=== PATIENT | female | born 1955 | race Caucasian/White ===

== ENCOUNTER 2025-03-25 10:44 | Outpatient (AMB) | payer MEDICARE, OTHER, SELFPAY ==
--- NOTE | 2025-03-25 10:46 | A.OFFVIS_ITS ---
Vital Signs 03/25/25 10:47 Height 5 ft 6 in Weight 136 lb BMI 21.9 BP 100/60 Blood Pressure Location Lt brachial Position Sitting Pulse 69 Pulse Source Pulse Oximeter Pulse Oximetry (%) 99 Oxygen Delivery Method Room Air Intake Visit Reasons: Pulmonary Arteriovenous Malformation Allergies No Known Allergies Allergy (Verified 03/25/25 10:49) HPI Comments Details: The patient is here for pulmonary evaluation. The patient is a 69 year woman with known history of pulmonary arteriovenous malformations status post coiling in [place]. She is here for a follow-up visit. The patient states that she has been doing very well after her colon. She has not had anymore testing for them. The patient did have some AV malformations that would not intervene because of her too small. 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 From a respiratory melo she is does well she denies any significant shortness of breath. We did do a brief walking oximetry in the office and she was able to maintain a pulse ox of 98% with activity. Since we spoke in the past the patient did develop atrial fibrillation. She is following closely with Cardiology. The patient does have underlying daytime drowsiness with an [place] score that is elevated at 10/24. The patient did have a sleep study many years ago demonstrating mild sleep apnea the time. Although at that time she did not have atrial fibrillation. Therefore will request a home sleep study at this time. In addition to that the patient does follow-up with Neurosurgery regarding aneurysms of the brain although they are small she is getting MRAs every couple years. In addition to that she was told about AV malformations in the GI tract. I do not have any details of that. For now will go ahead and request a CT scan of the chest to assess for any pulmonary nodules or AVM in the lungs and will request a home sleep study. The patient will return in 3 4 months to review the results. If she has any issues prior to that she will call for an earlier assessment. [facility] Medical History (Updated 03/25/25 @ 16:01 by Amos Pinon MD) Pulmonary nodules ROCIO (obstructive sleep apnea) Afib Pulmonary arteriovenous malformation Review of Systems Const Reports daytime sleepiness, Denies fever(s), Denies headache(s) and Reports snoring Eyes Reports no additional complaints ENT Denies headache(s) Card Denies chest pain Resp Reports snoring GI Reports no additional complaints Musc Reports no additional complaints Skin/Breast Denies rash Neuro Denies headache(s) Endo Reports no additional complaints Tang/Lymph Reports no additional complaints Physical Exam Vital Signs: Last Vital Signs Pulse 69 03/25/25 10:47 BP 100/60 03/25/25 10:47 Pulse Ox 99 03/25/25 10:47 Oxygen Delivery Method Room Air 03/25/25 10:47 BMI result Body Mass Index 21.9 Const General: comfortable HEENT Head: Yes normocephalic Neck Neck: Yes supple Chest Chest palpation & inspection: normal inspection of the chest Resp Effort & Inspection: normal respiratory effort Auscultation: clear to auscultation bilaterally Cardio Rate: regular rate Heart sounds: S1 normal heart sound present and S2 normal heart sound present GI Palpation (GI): Soft to palpation Skin General skin exam: no rashes or lesions noted Extrem General: Yes no clubbing, cyanosis or edema Assessment & Plan Assessment & Plan (1) ROCIO (obstructive sleep apnea): Code(s): G47.33 - Obstructive sleep apnea (adult) (pediatric) Category: Medical (2) Afib: Code(s): I48.91 - Unspecified atrial fibrillation Category: Medical Qualifiers: Atrial fibrillation type: persistent (not longstanding) Qualified Code(s): I48.19 - Other persistent atrial fibrillation (3) Pulmonary arteriovenous malformation: Code(s): Q25.72 - Congenital pulmonary arteriovenous malformation Category: Medical (4) Pulmonary nodules: Code(s): R91.8 - Other nonspecific abnormal finding of lung field Category: Medical Plan CT chest Home PSG F/U 3 months Orders: Orders CT chest wo IV con Today G47.33 - Obstructive sleep apnea (adult) (pediatric), I48.91 - Unspecified atrial fibrillation, Q25.72 - Congenital pulmonary arteri ovenous malformation RT home sleep study Today G47.33 - Obstructive sleep apnea (adult) (pediatric) Coding Level of Care Code New Pt Level 4 (23743) Diagnoses ROCIO (obstructive sleep apnea) G47.33 Persistent atrial fibrillation I48.19 Atrial fibrillation type: persistent (not longstanding) Pulmonary arteriovenous malformation Q25.72 Pulmonary nodules R91.8 Time Spent (min) 45
[2025-03-25 10:47] VITALS: BP 100/60; PULSE 69; O2SAT 99; BMI 21.9
--- OUTSIDE RECORDS SUMMARY | 2025-03-25 12:11 | XMS_ITS | Data Portability ---
Author Organization [place] [facility] Address [address] [address] Care Team Providers Care Boring Machine Feeder Name Role Phone YASIR HANSON Primary Care Provider Assessment Encounter Date Assessment Date Assessment LastModified by Organization Details LastModified Time 01/14/2025 01/14/2025 69yo female presents for evaluation of hearing loss. Cerumen impactions removed from bilateral external auditory canals. Otologic exam demonstrates TMs are intact with well-aerated middle ear spaces. Audiogram shows high-frequency sensorineural hearing loss, essentially stable compared to testing performed in 2022. Patient is not a candidate for amplification. Recommend follow up in 1-2 years for repeat audiometric testing, or sooner with any concerns. [email or web address] Not available 01/14/2025 12:17:07 Plan of Treatment Reminders Order Date Submit Date Provider Last Modified By Organization Details Last Modified Time Details Appointments None record ed. Lab None record ed. Referral None record ed. Procedures None record ed. Surgeries None record ed. Imaging None record ed. Medication Orders None record ed. Patient TargetsNo targets recorded. Patient InstructionsNo instructions recorded. Reason for Referral None Reported. Results Created Date Observation Date Name Description Value Unit Range Abnormal Flag Note LastModifiedBy Organization Detail LastModifiedTime 01/15/20 25 audio gram No observ ation record ed. BARCODE Not Available 2024 17:50:57 Result Notes None recorded. Problems Name Problem SNOMED Code Status Onset Date Resolution Date Notes Provider Name and Address Organization Details Recorded Time Impacted cerumen in right ear 60502269299 67688 Active 2022 Impacted cerumen, right ear; Note: Date Diagnosed : 01/17/2023 3:33 PM (H61.21) Not Available [facility] 4 02:23:41 Sensorine ural hearing loss of bilateral ears 506789273 Active 2022 Sensorine ural hearing loss, bilateral ; Note: Date Diagnosed : 02/16/2023 1:59 PM (H90.3) Not Available [facility] 4 02:24:07 Impacted cerumen of bilateral ears 96220717813 85053 Active 2021 Impacted cerumen, bilateral ; Note: Date Diagnosed : 05/03/2022 2:35 PM (H61.23) Not Available [facility] 4 02:23:46 Bilateral tinnitus 49686245730 02 Active 2022 Tinnitus, bilateral ; Note: Date Diagnosed : 02/16/2023 2:17 PM (H93.13) Not Available [facility] 4 02:24:04 Dizziness and giddiness 559268730 Active 2022 Dizziness and giddiness ; Note: Date Diagnosed : 02/16/2023 2:17 PM (R42) Not Available [facility] 4 02:23:39 Tinnitus of vascular origin 371620247 Active 2021 Pulsatile tinnitus, left ear; Note: Date Diagnosed : 05/03/2022 2:35 PM (H93.A2) Not Available [facility] 4 02:24:05 Problem Notes None recorded. Procedures Surgical History Date Name Laterality Status Provider Name and Address Organization Details Recorded Time 5 Air & Speech Audio with Tymps - 61446, 01826 & 03482 completed Pam Flores [place] [facility] 01/14/2025 11:45:32 5 Cerumen removal without microscope bilat completed MARGOTH WAY PA-C [address] [place] [address], [phone], [place] [facility] 01/14/2025 11:24:26 Imaging Results None recorded. Procedure Notes None recorded. Medical Equipment None Reported. Allergies No known drug allergies Medications Name Sig Start Date Stop Date Status Note LastModified by Organization Details LastModified Time amoxicill in 500 mg capsule TAKE 4 CAPSULES BY MOUTH 1 HOUR PRIOR TO APPOINT ENT 01/14 completed Not Available Not Available Not Available digoxin 250 mcg (0.25 mg) tablet 01/14 completed Medicati on ID: [id number] B rand Name: digoxin Send Method: E-Prescr ibed Sub s Allowed: subs OK Medic ationGen ericName : digoxin Not Available Not Available Not Available flecainid e 100 mg tablet TAKE 1 TABLET BY MOUTH TWICE A DAY active Not Available Not Available No t Available digoxin 125 mcg (0.125 mg) tablet 01/14 completed Medicati on ID: [id number] B rand Name: digoxin Send Method: E-Prescr ibed Sub s Allowed: subs OK Medic ationGen ericName : digoxin Not Available Not Available Not Available diltiazem 30 mg tablet TAKE 1 TABLET BY MOUTH TWICE DAILY DIRECTED active Not Available Not Available No t Available amoxicill in 875 mg-potass ium clavulana te 125 mg tablet 01/14 completed Medicati on ID: [id number] B rand Name: amoxicil kurtis-pot clavulan ate Send Method: E-Prescr ibed Sub s Allowed: subs OK Medic ationGen ericName : amoxicil kurtis-pot clavulan ate Not Available Not Available Not Available rosuvasta tin 10 mg tablet TAKE 1 TABLET BY MOUTH EVERY DAY FOR 30 DAYS active Not Available Not Available No t Available metoprolo l tartrate 25 mg tablet 01/14 completed Medicati on ID: [id number] B rand Name: metoprol ol tartrate Send Method: E-Prescr ibed Sub s Allowed: subs OK Speci al Instruct ion: TAKE 1/2 TABLET BY MOUTH TWICE A DAY Medi cationGe nericNam e: metoprol ol tartrate Not Available Not Available Not Available DILT-XR 120 mg capsule, extended release TAKE 1 CAPSULE BY MOUTH EVERY DAY 01/14 completed Not Available Not Available Not Available Linzess 145 mcg capsule TAKE 1 CAPSULE (145 MCG TOTAL) BY MOUTH DAILY BEFORE BREAKFAS T active Not Available Not Available No t Available Linzess 72 mcg capsule PLEASE SEE ATTACHED FOR DETAILED DIRECTIO NS 01/14 completed Not Available Not Available Not Available Flowflex COVID-19 Antigen Home Test kit active Medicati on ID: [id number] B rand Name: Flowflex COVID-19 Ag Home Test Sen d Method: E-Prescr ibed Sub s Allowed: subs OK Speci al Instruct ion: TAKE DIRECTED Medicat ionGener icName: Flowflex COVID-19 Ag Home Test Not Available Not Available Not Available Vitals Date Recorded Body height Body mass index (BMI) Body weight Provider Name and Address Organization Details Last Updated DateTime 01/14/2025 167.64 cm 22.1 kg/m2 05471.15 g VINOD ROWAN [place] - [facility] 01/14/2025 11:08:50 Social History None recorded. Functional Status None recorded. Mental Status None recorded. Family History Nothing Reported. Medical History No medical history recorded. Gynecological HistoryNo gynecological history recorded. Obstetrics History GPAL:G 0 P 0 0 0 0 Past Encounters Encounter ID Performer Location Encounter Start Date Encounter Closed Date Diagnosis/Indication Diagnosis SNOMED-CT Code Diagnosis ICD10 Code Diagnosis Note [id number] HUGH CASTELLANOSC [facility] [address] [address] 01/14/2025 10:54:32 01/14/2025 12:08:37 Impacted cerumen of bilateral ears 2280863250 392421 H61.23 Sensorineu ral hearing loss of bilateral ears 419737149 H90.3 Audiologic al evaluation results:Ri ght ear:Normal sloping to a moderate sensorineu ral hearing loss with excellent word recognitio n.Left ear:Normal sloping to a moderate sensorineu ral hearing loss with excellent word recognitio n.Tympanom etry:Right Ear: Type AdLeft Ear: Type Ad Bilateral tinnitus 26397 62605 102 H93.13 [id number] SUZY PARIKH MA, CCC-A [facility] [address] [address] 01/14/2025 11:44:53 01/17/2025 13:13:40 Sensorineural hearing loss of bilateral ears 988577190 H90.3 Audiologic al evaluation results:Ri ght ear:Normal sloping to a moderate sensorineu ral hearing loss with excellent word recognitio n.Left ear:Normal sloping to a moderate sensorineu ral hearing loss with excellent word recognitio n. Tympanomet ry:Right Ear:Type AdLeft Ear:Type Ad Health Concerns Section Related Observation LastModified by Organization Detai ls LastModified Time None Recorded Concern Status LastModified by Organization Details LastModified Time None Recorded Advance Directives Directive None Recorded Payers Insurance Date Sequence Insurance Name Policy Number Policy Lay Covered Member ID Lay Member ID Guarantor Name 01/14/2025 1 MEDICARE B-[place]: [facility] [employer] Suzy Alex [id number] Suzy Pastor Isai 01/14/2025 2 [facility] Suzy Pastor Alex [id number] Suzy A Alex Notes Date Note Type Note Provider Name and Address Organization Details Recorded Time 01/14/2025 text/html 69yo female presents for evaluation of hearing loss and wax removal. She feels hearing loss is stable. She has bilateral constant tinnitus, worse at night. She reports occasional pulsatile sensation in the head during exertion, but cannot isolate to the ears. Denies ear pain, drainage, or dizziness. Denies prior history of ear infections or ear surgeries. PERICO HERNANDEZ MD [address] [place] [address], [phone] 01/14/2025 12:34:06 OBGyn Episode No OBEpisode recorded.
== END 2025-03-25 11:15 | disposition home or self-care (01) ==
LOC: HO.HPS 10:45
PROVIDERS: PCP Internal Medicine; Referring Provider Internal Medicine; Visit Provider Hospitalist
DX: G47.33 Obstructive sleep apnea (adult) (pediatric) (principal); I48.19 Other persistent atrial fibrillation; Q25.72 Congenital pulmonary arteriovenous malformation; R91.8 Other nonspecific abnormal finding of lung field
CPT/HCPCS: 99204

== ENCOUNTER → 2025-03-25 10:44 | Outpatient (BNVA) | payer MEDICARE, OTHER, SELFPAY | PROVIDERS: PCP Internal Medicine; Referring Provider Internal Medicine; Visit Provider Hospitalist | DX: Q25.72 Congenital pulmonary arteriovenous malformation (principal); G47.33 Obstructive sleep apnea (adult) (pediatric); I48.19 Other persistent atrial fibrillation; R91.8 Other nonspecific abnormal finding of lung field | CPT/HCPCS: 99202 ==

== ENCOUNTER → 2025-06-09 09:54 | Outpatient (REF) | payer MEDICARE, OTHER, SELFPAY ==
--- OUTSIDE RECORDS SUMMARY | 2025-06-09 10:40 | XMS_ITS | Continuity of Care Document ---
Author Organization [facility] [address] [facility] [address] [place] [address] Phone [phone] Social History Type Date Description Comments Sex Female Sex Unknown Medical Devices Description No Information Available Encounters Description No Information Available Assessments Description No Information Available Plan of Treatment No Information Available Functional Status Description No Information Available Mental Status Description No Information Available Referrals Description No Information Available
--- OUTSIDE RECORDS SUMMARY | 2025-06-09 10:40 | XMS_ITS | Clinical Summary ---
Author Organization [facility] [address] [facility] Address [address] [place] [address] Phone Care Team Providers Care Furnace Liner Name Role Phone Rogelio Hanson MD Primary Care Provider + [phone] Allergies Active Allergy Reactions Criticality Noted Date Comments Promethazine 01/06/2025 Medications magnesium citrate 125 mg capsule Take 1 capsule by mouth 2 (two) times a day. 08/31/2023 Active pyridoxine (B-6) 100 mg tablet Take 1 tablet (100 mg total) by mouth 1 (one) time each day. Active cyanocobalamin (VITAMIN B-12) 500 mcg tablet Take 1 tablet (500 mcg total) by mouth 1 (one) time each day. Active cholecalciferol (VITAMIN D-3) 25 mcg (1,000 unit) capsule Take 25 mcg by mouth 1 (one) time each day. Active acetaminophen (TYLENOL 8 HOUR ORAL) Take by mouth. Active calcium citrate (CALCITRATE) 950 mg (200 mg elemental calcium) tablet Take 1 tablet (950 mg total) by mouth. Active linaCLOtide (Linzess) 145 mcg capsule Take 1 capsule (145 mcg total) by mouth 1 (one) time each day before breakfast. 90 each 3 10/22/2024 Active dilTIAZem (CARDIZEM) 30 mg immediate release tablet Take 1 tablet (30 mg total) by mouth 2 (two) times a day. Active rosuvastatin (CRESTOR) 10 mg tablet Take 0.5 tablets (5 mg total) by mouth 1 (one) time each day. for 30 days 12/24/2024 Active flecainide (TAMBOCOR) 100 mg tablet TAKE 1 TABLET BY MOUTH TWICE A DAY 180 tablet 2 04/24/2025 Active Active Problems Problem Noted Date Diagnosed Date Other constipation 10/14/2024 Assessment & Plan (02/25/2025 8:36 AM EDT): She continues to follow closely with GI. She has had some relief after being started on Linzess. Atrial fibrillation (CMS/HCC V24, CMS/HCC V28) 1 11/28/2020 Overview (08/28/2024): Last Assessment & Plan: Remains in sinus on ECG. Continue rhythm control with flecainide and rate control with diltiazem. Will update BMP. She will call me if she develops any symptoms. She is not anticoagulated given Von Willebrand's disease coupled with low [id number] score. Assessment & Plan (02/25/2025 8:36 AM EDT): Denies perception of recurrence of arrhythmia. She continues on diltiazem and flecainide. She is not anticoagulated in light of her von Willebrand's and her HHT. We will update surveillance stress testing in light of ongoing flecainide therapy. Orders: ECG 12 lead Nuclear stress test with myocardial perfusion; Future Other chest pain 09/27/2021 Overview (08/28/2024): Last Assessment & Plan: She does get a heaviness in her chest at times. Not clear if this is due to coronary disease or not but we will be scheduled for nuclear stress test. Shortness of breath on exertion 09/27/2021 Overview (08/28/2024): Last Assessment & Plan: She does have shortness of breath on exertion this could be related to the AVMs. She will need a echocardiogram and she will also need a nuclear stress test.. 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 Alex and compared to the previous one. I noted that the current study describes 3 tiny aneurysms but states it is stable from the previous study which only lists 2. I compared these [id number] and I can see the same outpouching on the 2022 study that was not mentioned in the report. I agree that the third tiny aneurysm in the left supraclinoid space was present and is stable. Ms. Alex feels well and the small aneurysms are asymptomatic. She occasionally gets a headache but I reassured her that these would not be the cause. We also discussed her history of von Willebrand's and the need for DDAVP in conjunction with any procedure. So far, these have not affected the aneurysms. She was diagnosed with A-fib 2 to 3 years ago and is being managed with medication only, she was told she is not eligible for any procedure due to her history. We also discussed that a maternal cousin was treated for a ruptured cerebral aneurysm and the patient herself tested positive for HHT. Her daughter has tested negative but I agree that her remaining children should be screened. We will plan on continuing with her surveillance imaging with a new MRA in 2 years. Cholelithiasis 02/08/2018 Overview (08/28/2024): And trace pericholecystic fluid. Gallbladder US 01/18/2018 Von Willebrand disease (CMS/HCC V24, CMS/HCC V28 ) 02/08/2018 Encounters Date Type Department Care Team Description 03/24/2025 Telephone [facility] - [address] [place] [address] Kali Quiroz MD 03/23/2025 Telephone [facility] - [address] [place] [phone] Kali Quiroz MD 03/17/2025 8:00 AM EDT Ancillary Procedure [facility] - [address] [place] [address] Paroxysmal atrial fibrillation ([facility] V24, [facility] V28) 03/17/2025 Telephone [facility] - [address] [place] [address] Kali Quiroz MD from Last 3 Months Surgical History Surgery Date Site/Laterality Comments COLONOSCOPY 10/2017 PROCEDURE: HISTORICAL COLONOSCOPY; COMMENT: endoscopy as well. No report or exact date-not in Medical History Medical History Date Comments Cholelithiasis 02/08/2018 DX:Cholelithiasi s; COMMENT: And trace pericholecystic fluid. 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 DX:A neurysm, ophthalmic artery AVM (arteriovenous malformation) 06/10/2018 DX:AVM (arteriovenous malformation); COMMENT: Lungs (RUL, RML and lingula); stable per CT chest 05/2016 GERD (gastroesophageal reflu x disease) Family History Medical History Relation Name Comments Hypertension Mother Other: AFIB Mother Other: PACEMAKER Mother Other: VALVE REPLACEMENT Mother Relation Name Status Comments Mother Social History Tobacco Use Types Packs/Day Years Used Date Smoking Tobacco: Never Smokeless Tobacco: Never Alcohol Use Standard Drinks/Week Comments Not Currently 0 (1 standard drink = 0.6 oz pur e alcohol) Comments Unknown Sex and Gender Information Value Date Recorded Sex Assigned at Not on file Legal Sex Female 7:21 PM EST Gender Identity Not on file Sexual Orientation Not on file Obstetrics History Last Filed Vital Signs Vital Sign Reading Time Taken Comments Blood Pressure 95/58 03/17/2025 8:18 AM EDT Pulse 71 02/24/2025 8:36 AM EDT Temperature - - Respiratory Rate - - Oxygen Saturation 98% 02/24/2025 8:36 AM EDT Inhaled Oxygen Concentration - - Weight 61.7 kg (136 lb) 03/17/2025 9:21 AM EDT Height 167.6 cm (5' 6 ) 03/17/2025 9:21 AM EDT Body Mass Index 21.95 03/17/2025 9:21 AM EDT Plan of Treatment Upcoming Encounters Date Type Department Care Team (Late st Contact Info) Description 09/21/2025 9:10 AM EST Office Visit [facility] [address] [place] [address] Haydee Barrios, SANDRA [address] [place] [address] Health Maintenance Due Date Last Done Comments Breast Cancer Screening 1955 DTaP,Tdap,and Td Vaccines (1 - Tdap) 1975 Pneumococcal Vaccine: 50+ Years (1 of 1 - PCV) 2006 Zoster Vaccines (1 of 2) 2006 Cholesterol Screening (Lipid Panel) 09/23/2022 Colorectal Cancer Screening: Colonoscopy 09/23/2022 Falls Risk Assessment 09/23/2022 Hepatitis C Screening 09/23/2022 Social Influencers of Health Screening 09/23/2022 Medicare Annual Wellness Visit 11/09/2023 11/09/2022 Depression Screening 10/15/2024 COVID-19 Vaccine ( season) 2025 07/26/2024, 03/04/2023, 01/17/2022, Additional history exists Influenza Vaccine (#1) 2025 , 08/06/2023, 08/04/2022, Additional history exists RSV Immunization Adult Patients (1 - 1-dose 75+ series) 2031 Osteoporosis Screening (Bone Density Screening) 12/20/2033 12/21/2023, 09/27/2021, 08/06/2018 HIB Vaccines Aged Out No longer eligi ble based on patient's age to complete this topic HPV Vaccines Aged Out No longer eligi ble based on patient's age to complete this topic Hepatitis A Vaccines Aged Out No long er eligible based on patient's age to complete this topic Hepatitis B Vaccines Aged Out No long er eligible based on patient's age to complete this topic IPV Vaccines Aged Out No longer eligi ble based on patient's age to complete this topic MMR Vaccines Aged Out No longer eligi ble based on patient's age to complete this topic Meningococcal ACWY Vaccine Aged Out N o longer eligible based on patient's age to complete this topic Meningococcal B Vaccine Aged Out No l onger eligible based on patient's age to complete this topic RSV Immunization Patients Under 20 months Aged Out No longer eligible based on patient's age to complete this topic Varicella Vaccines Aged Out No longer eligible based on patient's age to complete this topic Procedures Procedure Name Priority Date/Time Associated Diagnosis Comments NM EXERCISE STRESS TEST W/ MYOCARDIAL PERFUSION Routine 03/17/2025 10:30 AM EDT Paroxysmal atrial fibrillation (CMS/HCC V24, CMS/HCC V28) [facility] DEXA AXIAL SKELETON Routine 12/21/2023 10:56 AM EST Encounter for screening for osteoporosis from Last 3 Months or Most Recently Relevant to Health Maintenance Results * NM EXERCISE STRESS TEST W/ MYOCARDIAL PERFUSION (03/17/2025 10:30 AM EDT) Exercise/injec tion duration (min) 4 CV PACS STRESS Exercise/injec tion duration (sec) 54 CV PACS STRESS Peak SBP 122 mmHg CV PACS STRESS Peak DBP 74 mmHg CV PACS STRESS Peak HR 134 bpm CV PACS STRESS Baseline HR 115 bpm CV PACS STRESS Baseline SBP 95 mmHg CV PACS STRESS Baseline DBP 58 mmHg CV PACS STRESS Estimated workload 7.0 METS CV PACS STRESS Percent HR 88 % CV PACS STRESS Rate Pressure Product 16,348.0 mmHg*bpm CV PACS STRESS Target HR 129 bpm CV PACS STRESS Max HR Percent 88 % CV PA CS STRESS O2 sat rest 99 % CV PACS STRESS TID 0.81 CV PACS STRESS Nuc Stress EF 72 % CV PAC S STRESS Nuc Rest EF 63 % CV PACS STRESS BSA 1.69 m2 CV PACS STRESS Anatomical Region Laterality Modality Nuclear Medicine 03/17/2025 8:46 AM EDT 03/17/2025 9:15 AM EDT Impressions 03/19/2025 10:18 AM EDT Normal Exercise stress test with nuclear imaging. No chest pain or EKG changes consistent with ischemia. Nuclear imaging revealed no significant perfusion defects. There is a normal TID ratio. Gated SPECT imaging was performed and revealed an LVEF of 63 %. Narrative 03/19/2025 10:18 AM EDT Nuclear imaging of the left ventricle shows a normal cavity size. Myocardial perfusion imaging of the left ventricle reveals no significant perfusion defects Gated SPECT imaging was performed which demonstrated normal left ventricular systolic function. The calculated LVEF is 63 %. TID ratio is normal. There was no significant coronary artery calcification noted on CT scan. Stress Findings A Bryan protocol stress test was performed. Overall, the patient's exercise capacity was average. The patient reached stage 2. Total stress time was 4 min and 54 sec. The patient's hemodynamic response was adequate for diagnosis. Blood pressure demonstrated a normal response. Heart rate demonstrated a normal response. Leg heaviness and fatigue ECG 69-year-old female with past medical history of atrial fibrillation, hereditary hemorrhagic telangiectasia von Willebrand's disease obstructive sleep apnea AVM and shortness of breath who presents today for a exercise stress test to rule out ischemia in the setting of increased fatigue and breathlessness. Patient takes flecainide 100 mg and diltiazem 30 mg. The ECG shows sinus rhythm. There were no arrhythmias during stress. There is no significant ST abnormalities during stress. There were no arrhythmias during recovery. The result of the stress ECG was negative for ischemia. Nuclear Study Quality Study technique: MPI, SPECT, multi, rest and stress, 1 day and gated. Overall image quality is good. CT attenuation correction was utilized. No radiopharmaceutical dose was extravasated. Stress Function Comments Stress ejection fraction is 72%. Rest Function Comments Resting ejection fraction was 63%. Haydee Barrios NP CV STRESS PROCEDURES F inal Result * ADAN DEXA AXIAL SKELETON (12/21/2023 10:56 AM EST) Anatomical Region Laterality Modality Mammography 12/21/2023 9:32 AM EST Narrative 12/21/2023 10:56 AM EST [facility] Diagnostic Imaging Department [address] [place] [address] Patient: ALEXSUZY./Age/Sex: 1955 - 68 - F Unit#: [id number] Location/Status: SPDIMAM/REG CLI Mnemonic/Ordering Site: MAMDEXAAX/SPMAM Ordering Physician: ROGELIO HANSON MD Adan Dexa Axial Skeleton - 12/21/23954 Report Status:Signed History: Low estrogen state due to menopause. Parent hip fracture. Comparison: 09/27/21 Findings: Bone densitometry is performed utilizing dual energy x-ray absorptiometry (DXA) in the TeladocigStartupeando unit. The lumbar spine and proximal femora are evaluated in the AP projection. The FRAX questionaire was completed. The results indicate osteoporosis, with a lumbar spine T-score of -2.9. The Z score is -1.1, indicating low bone mineral density for age. There has been a small, statistically significant increase in bone mineral density in the spine since the previous study. The detailed DEXA report will be mailed to the referring physician's office. DualFemur FRAX: 10-year Probability of Fracture: Major Osteoporotic 15.2 percent Hip 1.6 percent. IMPRESSION: Osteoporosis. [id number] Dictating Physician: CAROL QUINTANA MD Electronically Signed by: CAROL QUINTANA MD Dic Date/Time: 12/21/23 1055 Sign date/Time: 12/21/23 1056 Procedure Note Carol Quintana MD - 06/02/2024 [facility] Diagnostic Imaging Department [address] [place] [address] Patient: SUZY ALEX /Age/Sex: 1955 - 68 - F Unit#: [id number] Location/Status: [facility] CLI Mnemonic[facility] Ordering Physician: ROGELIO HANSON MD Adan Dexa Axial Skeleton - 12/21/23954 Report Status:Signed History: Low estrogen state due to menopause. Parent hip fracture. Comparison: 09/27/21 Findings: Bone densitometry is performed utilizing dual energy x-ray absorptiometry(DXA) in the Teladocigy unit. The lumbar spine and proximal femora areevaluated in the AP projection. The FRAX questionaire was completed. The results indicate osteoporosis, with a lumbar spine T-score of -2.9.The Z score is -1.1, indicating low bone mineral density for age. There has been a small, statistically significant increase in bonemineral density in the spine since the previous study. The detailed DEXA reportwill be mailed to the referring physician's office. DualFemur FRAX: 10-year Probability of Fracture: Major Osteoporotic 15.2 percent Hip 1.6 percent. IMPRESSION: Osteoporosis. [id number] Dictating Physician: CAROL QUINTANA MD Electronically Signed by: CAROL QUINTANA MD Dic Date/Time: 12/21/23 1055 Sign date/Time: 12/21/23 1056 Rogelio Hanson MD IMG BI PROCEDURES Final Resu lt from Last 3 Months or Most Recently Relevant to Health Maintenance Insurance MEDICARE [facility] Care Teams Furnace Liner Relationship Specialty Start Date End Date Rogelio Hanson MD [address] [place] [address] PCP - General Internal Medicine 01/05/25
--- OUTSIDE RECORDS SUMMARY | 2025-06-09 10:40 | XMS_ITS | Clinical Summary ---
Author Organization [facility] Address [address] [place] [address] Care Team Providers Care Repairer Helper Name Role Phone Rogelio Barrientos MD Primary Care Provider [phone] Social History Tobacco Use Types Packs/Day Years Used Date Smoking Tobacco: Never Assessed Sex and Gender Information Value Date Recorded Sex Assigned at Not on file Gender Identity Not on file Sexual Orientation Not on file Job Start Date Occupation Industry Not on file Not on file Not on file Plan of Treatment Health Maintenance Due Date Last Done Comments Hepatitis C Screening 1955 COVID-19 Vaccine (#1) 1955 Depression Screening 1968 Preventative Health Evaluation 1974 DTap / Tdap / Td (1 - Tdap) 1975 Colon Cancer Screening (Colonoscopy) 2001 Breast Cancer Screening (Mammogram) 2006 Shingrix-Zoster Vaccine (1 of 2) 2006 Fall Risk Assessment 2021 Osteoporosis Screening (DEXA Scan) 2021 Pneumococcal Vaccine (1 of 1 - PCV) 2021 Influenza Vaccine (#1) 2025 RSV Adult > 60+ Yrs or Pregn ant (1 - 1-dose 75+ series) 2031 Hepatitis B Vaccines Aged Out No long er eligible based on patient's age to complete this topic RSV Ped < 20 months Aged Out No longe r eligible based on patient's age to complete this topic Care Teams Repairer Helper Relationship Specialty Start Date End Date Rogelio Barrientos MD [address] [place] [address] PCP - General Internal Medicine 11/11/20
== END ==
LOC: HO.SL 09:54
PROVIDERS: PCP Internal Medicine; Visit Provider Hospitalist
DX: G47.33 Obstructive sleep apnea (adult) (pediatric) (principal); R06.83 Snoring
CPT/HCPCS: 95806

== ENCOUNTER → 2025-06-09 10:03 | Outpatient (BNV) | payer MEDICARE, OTHER, SELFPAY | PROVIDERS: PCP Internal Medicine; Visit Provider Internal Medicine | DX: R06.83 Snoring (principal) | CPT/HCPCS: 95806 ==

== ENCOUNTER 2025-09-14 12:55 | Outpatient (REF) | payer MEDICARE, OTHER, SELFPAY ==
--- OUTSIDE RECORDS SUMMARY | 2008-12-27 23:00 | XMS_ITS | Encounter Summary ---
Author Organization [facility] Address [address] [place] [address] Phone Care Team Providers Care Receptionist Airline Lounge Name Role Phone Unavailable Primary Care Provider Unavailabl e Reason for Visit * MRI/CAT Scan - Closed Specialty Diagnoses / Procedures Referred By Contac t Referred To Contact Procedures MRI Brain Outside (No Interpretation) Tom Archibald MD [address] [place] [address] Phone: tel: fax: mailto:[email or web address] Referral ID Status Reason Start Date Expiration Date Visits Re quested Visits Authorized [id number] Closed 08/20/2018 08/20/2019 1 1 Encounter Details Date Type Department Care Team (Late st Contact Info) Description 12/28/2008 Hospital Encounter [facility] General Imaging [address] [place] [address] Tom Archibald MD [address] [place] [address] [email or web address] Social History Tobacco Use Types Packs/Day Years Used Date Smoking Tobacco: Never Education Answer Date Recorded Are you interested in more education? Not on eugenio e 02/09/2023 Are you concerned about learning? Not on file 02/09/2023 No 02/09/2023 No 02/09/2023 Digital Access Answer Date Recorded No 03/10/2023 No 03/10/2023 No 03/10/2023 Reliable internet access at home? Not on file 03/10/2023 Device with a working camera? Not on file Comments Unknown Sex and Gender Information Value Date Recorded Sex Assigned at Not on file Legal Sex Female 11:22 AM EDT Gender Identity Not on file Sexual Orientation Not on file documented as of this encounter Plan of Treatment Not on file documented as of this encounter Procedures Procedure Name Priority Date/Time Associated Diagnosis Comments MRI BRAIN OUTSIDE (NO INTERPRETATION) Routine 12/28/2008 12:00 AM EDT documented in this encounter Results * MRI Brain Outside (No Interpretation) (12/28/2008 12:00 AM EDT) Narrative [facility] - 08/20/2018 1:09 PM EST This study is for PACS storage only and not for interpretation. us Tom Archibald MD IMG OUTSIDE IMAGING W/OUT INTERPRETATION Final Result [facility] documented in this encounter Visit Diagnoses Not on filedocumented in this encounter Additional Source Comments The information contained in this document represents components of the legal health record. It is not the complete legal health record.[facility]
--- OUTSIDE RECORDS SUMMARY | 2008-12-27 23:15 | XMS_ITS | Encounter Summary ---
Author Organization [facility] Address [address] [place] [address] Phone Care Team Providers Care Gambreler Name Role Phone Unavailable Primary Care Provider Unavailabl e Reason for Visit * MRI/CAT Scan - Closed Specialty Diagnoses / Procedures Referred By Contac t Referred To Contact Procedures MRI Brain Outside (No Interpretation) Tom Archibald MD [address] [place] [address] Phone: tel: fax: mailto:[email or web address] Referral ID Status Reason Start Date Expiration Date Visits Re quested Visits Authorized [id number] Closed 08/20/2018 08/20/2019 1 1 Encounter Details Date Type Department Care Team (Late st Contact Info) Description 12/28/2008 12:15 AM EDT Hospital Encounter [facility] [address] [place] [address] Tom Archibald MD [address] [place] [phone] [email or web address] Social History Tobacco Use Types Packs/Day Years [...] MRI BRAIN OUTSIDE (NO INTERPRETATION) Routine 12/28/2008 12:15 AM EDT documented in this encounter Results * MRI Brain Outside (No Interpretation) (12/28/2008 12:15 AM EDT) Narrative [facility] - 08/20/2018 1:10 PM EST This study is for PACS storage only and not for interpretation. us Tom Archibald MD IMG OUTSIDE IMAGING W/OUT INTERPRETATION Final Result [facility] documented in this encounter Visit Diagnoses Not on filedocumented in this encounter Additional Source Comments The information contained in this document represents components of the legal health record. It is not the complete legal health record.[facility]
--- OUTSIDE RECORDS SUMMARY | 2013-04-11 23:00 | XMS_ITS | Encounter Summary ---
Author Organization [facility] Address [address] [place] [phone] Phone Care Team Providers Care Senior Telecommunications Consultant Name Role Phone Unavailable Primary Care Provider Unavailabl e Reason for Visit * MRI/CAT Scan - Closed Specialty Diagnoses / Procedures Referred By Contac t Referred To Contact Procedures MRI Brain Outside (No Interpretation) Tom Archibald MD [address] [place] [address] Phone: tel: fax: mailto:[email or web address] Referral ID Status Reason Start Date Expiration Date Visits Re quested Visits Authorized [id number] Closed 08/20/2018 08/20/2019 1 1 Encounter Details Date Type Department Care Team (Late st Contact Info) Description 04/12/2013 Hospital Encounter [facility] General Imaging [address] [place] [address] Tom Archibald MD [address] [place] [phone] [email or web address] Social History Tobacco Use Types Packs/Day Years [...] Comments MRI BRAIN OUTSIDE (NO INTERPRETATION) Routine 04/12/2013 12:00 AM EDT documented in this encounter Results * MRI Brain Outside (No Interpretation) (04/12/2013 12:00 AM EDT) Narrative [facility] [place] [facility] - 08/20/2018 1:24 PM EST This study is for PACS storage only and not for interpretation. us Tom Archibald MD IMG OUTSIDE IMAGING W/OUT INTERPRETATION Final Result [facility] [place] [facility] documented in this encounter Visit Diagnoses Not on filedocumented in this encounter Additional Source Comments The information contained in this document represents components of the legal health record. It is not the complete legal health record.[facility]
--- NOTE | ~2025-09-14 | CT_ITS ---
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 TECHNIQUE: Helical CT scan of the chest was performed without intravenous contrast. Coronal and sagittal reformatted images were generated and reviewed. This CT exam was performed with one or more of the following dose reduction techniques: automated exposure control, adjustment of the mA and/or kV according to patient size, use of iterative reconstruction technique. DLP: 83 mGy-cm CHEST: THYROID: The thyroid is unremarkable. LUNGS: There is a heterogeneous 4 x 11 mm right upper lobe nodule axial image 150 series 6. This has a prominent feeding pulmonary artery and draining vein and is suspicious for AVM. There is embolization material seen in the right middle lobe example axial image 246 series 6 measuring up to 3 cm.. There is a 5 mm right middle lobe nodule near the major fissure axial image 294 series 6 with prominent artery and vein also questionable for AVM. There is embolization material seen in the lingula measuring up to 1 cm. Small 3 mm calcified right lower lobe nodules axial image 263 and 373 and left lower lobe axial image 170 series 6 probably representing calcified granulomas. Differential would include embolization material. There is mild mucous plugging seen in the right middle lobe for example axial image 290 series 6. Air scattered small groundglass attenuation nodules for example left lung apex axial image 59 series 6, left upper lobe axial image 175 series 6 and left lower lobe axial image 217 series 6. This may be related to airways disease. Central airways are clear. There is mild biapical pleural and parenchymal scarring. MEDIASTINUM: There is no mediastinal lymphadenopathy. MARGI: Evaluation of the hilar regions is limited by lack of intravenous contrast material. CARDIOVASCULATURE: The heart is normal in size. There is no pericardial effusion. The thoracic aorta is normal in caliber. DEGREE OF CORONARY CALCIFICATION: none PLEURA: There is no pleural effusion. No pneumothorax. MAIN AIRWAYS: The mainstem bronchi and proximal branches are patent. AXILLA: There is no axillary lymphadenopathy. BONES AND SOFT TISSUES: Unremarkable UPPER ABDOMEN: Small calcification in the spleen. 6 mm lucent centered calcification in the splenic hilum questionable splenic artery aneurysm. CT/CT chest wo IV con IMPRESSION: Embolization material seen in the right middle lobe and lingula. 4 x 11 mm right upper lobe nodule and 5 mm right middle lobe nodule questionable for AVMs. Comparison with old outside exams recommended. Contrast-enhanced CT would be beneficial. Electronically signed by: Candace Galan MD 09/14/2025 02:28 PM EST
--- OUTSIDE RECORDS SUMMARY | 2025-09-14 16:32 | XMS_ITS | Data Portability ---
Author Organization [place] - [facility], Allergy Address [address] [address] Care Team Providers Care Gas Plant Worker Name Role Phone YASIR HANSON Primary Care [...] any concerns. [email or web address] Not available 01/14/2025 12:17:07 08/26/2025 08/26/2025 70-year-old female presents for wax removal. Cerumen impaction was partially obstructing the bilateral external auditory canals and removed using suction. Patient tolerated the procedure well. Tympanic membranes are otherwise intact with well aerated middle ear spaces. Offered to obtain an MRI/MRA of the head and neck to assess for any vascular abnormalities, especially given her history of AVM and HHT, however she declined for now. No carotid or otic bruits were appreciated previously. Follow up in 3 months for repeat debridement, sooner with any new or worsening concerns. All questions were answered. [email or web address] Not available 08/26/2025 13:12:38 Plan of Treatment Reminders Order Date Submit Date Provider Last Modified By Organization Details Last Modified Time Details Appointments Establish ed 15 2025 10:45A KIMMY MARTINEZ Not available Not available Not available Lab None recorded. Referral None recorded. Procedures None recorded. Surgeries None recorded. Imaging None recorded. Medication Orders None recorded. Patient TargetsNo targets recorded. Patient InstructionsNo instructions [...] Address Organization Details Recorded Time Impacted cerumen of bilateral ears 35454658703 16644 Active 2021 Impacted cerumen, bilateral ; Note: Date Diagnosed : 05/03/2022 2:35 PM (H61.23) Not Available [facility] 4 02:23:46 Tinnitus of vascular origin 348165160 Active 2021 Pulsatile tinnitus, left ear; Note: Date Diagnosed : 05/03/2022 2:35 PM (H93.A2) Not Available [facility] 4 02:24:05 Impacted cerumen in right ear 44731142852 68922 Active 2022 Impacted cerumen, right ear; Note: Date Diagnosed : 01/17/2023 3:33 PM (H61.21) Not Available [facility] 4 02:23:41 Sensorine ural hearing loss of bilateral ears 284883649 Active 2022 Sensorine ural hearing loss, bilateral ; Note: Date Diagnosed : 02/16/2023 1:59 PM (H90.3) Not Available [facility] 4 02:24:07 Bilateral tinnitus 80222623592 02 Active 2022 Tinnitus, bilateral ; Note: Date Diagnosed : 02/16/2023 2:17 PM (H93.13) Not Available [facility] 4 02:24:04 Dizziness and giddiness 844921361 Active 2022 Dizziness and giddiness ; Note: Date Diagnosed : 02/16/2023 2:17 PM (R42) Not Available [facility] 4 02:23:39 Problem Notes None recorded. Procedures Surgical History Date Name Laterality Status Provider Name and Address Organization Details Recorded Time 5 Cerumen removal without microscope bilat completed KIMMY SCHREIBER [address], [place], [address], [facility] - [facility] 08/26/2025 13:03:43 5 Air & Speech Audio with Tymps - 95974, 23779 & 01014 completed Pam Flores [place] - [facility] 01/14/2025 11:45:32 5 Cerumen removal without microscope bilat completed MARGOTH WAY PA-C [address], [place], [address], [facility] - [facility] 01/14/2025 11:24:26 Imaging Results None recorded. Procedure Notes None recorded. Medical Equipment None Reported. Allergies No known drug allergies Medications Name Sig Start Date Stop Date Status Note LastModified by Organization Details LastModified Time amoxicill in 500 mg capsule TAKE 4 CAPSULES BY MOUTH 1 HOUR PRIOR TO APPOINTM ENT 08/23 completed Not Available Not Available Not Available digoxin 250 mcg (0.25 mg) tablet 01/14 completed Medicati on ID: [id number] B rand Name: digoxin Send Method: E-Prescr ibed Sub s Allowed: subs OK Medic ationGen ericName : digoxin Not Available Not Available Not Available flecainid e 100 mg tablet TAKE 1 TABLET BY MOUTH TWICE A DAY active Not Available Not Available No t Available digoxin 125 mcg (0.125 mg) tablet 01/14 completed Medicati on ID: [id number] B rand Name: digoxin Send Method: E-Prescr ibed Sub s Allowed: subs OK Medic ationGen ericName : digoxin Not Available Not Available Not Available diltiazem 30 mg tablet TAKE 1 TABLET BY MOUTH TWICE DAILY DIRECTED active Not Available Not Available No t Available amoxicill in 875 mg-potass ium clavulana te 125 mg tablet 01/14 completed Medicati on ID: [id number] B rand Name: amoxicil kurtis-pot clavulan ate Send Method: E-Prescr ibed Sub s Allowed: subs OK Medic ationGen ericName : amoxicil kurtis-pot clavulan ate Not Available Not Available Not Available rosuvasta tin 5 mg tablet TAKE 1 TABLET BY MOUTH EVERY DAY FOR 90 DAYS active Not Available Not Available No t Available rosuvasta tin 10 mg tablet TAKE 1 TABLET BY MOUTH EVERY DAY FOR 30 DAYS active Not Available Not Available No t Available metoprolo l tartrate 25 mg tablet 01/14 completed Medicati on ID: [id number] B rand Name: metoprol ol tartrate Send [...] Home Test kit active Medicati on ID: [id number] B rand Name: Flowflex COVID-19 Ag Home Test Sen d Method: E-Prescr ibed Sub s Allowed: subs OK Speci al Instruct ion: TAKE DIRECTED Medicat ionGener icName: Flowflex COVID-19 Ag Home Test Not Available Not Available Not Available Vitals Date Recorded Body height Body mass index (BMI) Body weight Provider Name and Address Organization Details Last Updated DateTime 01/14/2025 167.64 cm 22.1 kg/m2 65259.15 g VINOD ROWAN [place] - [facility] 01/14/2025 11:08:50 Date Recorded Body height Body mass index (BMI) Body weight Systolic And Diastolic Provider Name and Address Organization Details Last Updated DateTime 08/26/2025 167.64 cm 22.1 kg/m2 84355.15 g 100/68 mm[Hg] Amy Luevano [place] - [facility] 08/26/2025 10:56:19 Social History None recorded. Functional Status None recorded. Mental Status None recorded. Family History Nothing Reported. Medical History No medical history recorded. Gynecological HistoryNo gynecological history recorded. Obstetrics History GPAL:G 0 P 0 0 0 0 Past Encounters Encounter ID Performer Location Encounter Start Date Encounter Closed Date Diagnosis/Indication Diagnosis SNOMED-CT Code Diagnosis ICD10 Code Diagnosis IMO Codes Diagnosis Note [id number] KIMMY CASTELLANOS-C [facility] [address] [address] 01/14/2025 10:54:32 01/14/2025 12:08:37 Impacted cerumen of bilateral ears [id number] 163618 H61.23 Sensorineu ral hearing loss of bilateral ears 221570725 H90.3 Audiologic al evaluation results:Ri ght ear:Normal sloping to a moderate sensorineu ral hearing loss with excellent word recognitio n.Left ear:Normal sloping to a moderate sensorineu ral hearing loss with excellent word recognitio n.Tympanom etry:Right Ear: Type AdLeft Ear: Type Ad Bilateral tinnitus 53060 08543 102 H93.13 [id number] SUZY PARIKH MA, CCC-A [facility] [address] [address] 01/14/2025 11:44:53 01/17/2025 13:13:40 Sensorineural hearing loss of bilateral ears 914978246 H90.3 Audiologic al evaluation results:Ri ght ear:Normal sloping to a moderate sensorineu ral hearing loss with excellent word recognitio n.Left ear:Normal sloping to a moderate sensorineu ral hearing loss with excellent word recognitio n. Tympanomet ry:Right Ear:Type AdLeft Ear:Type Ad [id number] KIMMY SCHREIBER [facility] [address] [address] 08/26/2025 10:45:28 08/26/2025 11:13:33 Impacted cerumen of bilateral ears 6396979075 564237 H61.23 Tinnitus o f vascular origin 310331367 H93.A2 Bilateral tinnitus 44732 71914 102 H93.13 Sensorineu ral hearing loss of bilateral ears 106180877 H90.3 Health Concerns Section Related Observation LastModified by Organization Detai ls LastModified Time None Recorded Concern Status LastModified by Organization Details LastModified Time None Recorded Advance Directives Directive None Recorded Payers Insurance Date Sequence Insurance Name Policy Number Policy Lay Covered Member ID Lay Member ID Guarantor Name 08/23/2025 1 MEDICARE B-[place]: [facility] [employer] Suzy Alex [id number] 1 Suzy Alex 08/26/2025 2 [facility] Suzy Aelx [id number] Suzy Alex Notes Date Note Type Note Provider Name and Address Organization Details Recorded Time 01/14/2025 text/html ROS as noted in the HPI 69yo female presents for evaluation of hearing loss and wax removal. She feels hearing loss is stable. She has bilateral constant tinnitus, worse at night. She reports occasional pulsatile sensation in the head during exertion, but cannot isolate to the ears. Denies ear pain, drainage, or dizziness. Denies prior history of ear infections or ear surgeries. PERICO HERNANDEZ MD [address] [place] [address], [phone], [facility] 01/14/2025 12:34:06 08/26/2025 text/html ROS as noted in the HPI 70-year-old female presents for wax removal. Patient feels her hearing is stable, but continues to endorse bilateral tinnitus and an intermittent pulsating sound in her head, triggered by exertion. Denies otalgia, otorrhea, and dizziness. Using mineral oil for maintenance. History of AVM and HHT. PERICO HERNANDEZ MD [address] [place] [address], [phone], [facility] 08/26/2025 14:09:43 OBGyn Episode No OBEpisode recorded.
--- OUTSIDE RECORDS SUMMARY | 2025-09-14 16:32 | XMS_ITS | Encounter Summary ---
Author Organization [facility] Address [address] [place] [address] Phone Care Team Providers Care Intake Man Name Role Phone Rogelio Barrientos MD Primary Care Provider [phone] Amos Pinon MD Unavailable Encounter Details Date Type Department Care Team (Late st Contact Info) Description 08/20/2018 Procedure Pass [facility] [address] [place] [address] Social History Tobacco Use Types Packs/Day Years Used Date Smoking Tobacco: Never Assessed Comments Unknown Sex and Gender Information Value Date Recorded Sex Assigned at Not on file Legal Sex Female 11:22 AM EDT Gender Identity Not on file Sexual Orientation Not on file documented as of this encounter Plan of Treatment Not on file documented as of this encounter Visit Diagnoses Not on filedocumented in this encounter Care Teams Intake Man Relationship Specialty Start Date End Date Rogelio Barrientos MD [address] [place] [address] PCP - General Internal Medicine 06/03/18 Amos Pinon MD [address] [place] [address] [place] [address] Pulmonary Disease 08/23/18 documented as of this encounter Additional Source Comments The information contained in this document represents components of the legal health record. It is not the complete legal health record.[facility]
--- OUTSIDE RECORDS SUMMARY | 2025-09-14 16:32 | XMS_ITS | Encounter Summary ---
Author Organization [facility] Address [address] [place] [address] Phone Care Team Providers Care Pig Machine Crane Operator Name Role Phone Rogelio Barrientos MD Primary Care Provider [phone] Amos Pinon MD Unavailable Encounter Details Date Type Department Care Team (Late st Contact Info) Description 07/15/2018 Procedure Pass [facility] [address] [place] [address] Social History Tobacco Use Types Packs/Day Years [...] on filedocumented in this encounter Care Teams Pig Machine Crane Operator Relationship Specialty Start Date End Date Rogelio Barrientos MD [address] [place] [address] PCP - General Internal Medicine 06/03/18 Amos Pinon MD [address] [place] [address] [place] [address] Pulmonary Disease 08/23/18 documented as of this encounter Additional Source Comments The information contained in this document represents components of the legal health record. It is not the complete legal health record.[facility]
--- OUTSIDE RECORDS SUMMARY | 2025-09-14 16:32 | XMS_ITS | Clinical Summary ---
Author Organization [facility] Address [address] [place] [address] Care Team Providers Care Commercial Retoucher Name Role Phone Rogelio Barrientos MD Primary Care Provider Social History Tobacco Use Types Packs/Day Years [...] age to complete this topic Care Teams Commercial Retoucher Relationship Specialty Start Date End Date Rogelio Barrientos MD [address] [place] [address] PCP - General Internal Medicine 11/11/20
--- OUTSIDE RECORDS SUMMARY | 2025-09-14 16:32 | XMS_ITS | Encounter Summary ---
Author Organization [facility] Address [address] [place] [address] Phone Care Team Providers Care Camera Supervisor Name Role Phone Rogelio Barrientos MD Primary Care Provider + [phone] Amos Pinon MD Unavailable Reason for Referral * Outpatient Procedure - Closed Specialty Diagnoses / Procedures Referred By Conrad garcia Referred To Contact Radiology Diagnoses Pulmonary arteriovenous malformation Procedures [place] Arteriovenous Malformation (AVM) Embolization/Sclerotherapy Sampson Tatum MBBS Phone: tel: fax: mailto:[email or web address] Referral ID Status Reason Start Date Expiration Date Visits Re quested Visits Authorized [id number] Closed 04/21/2019 05/21/2019 1 1 Encounter Details Date Type Department Care Team (Latest Contact Info) Description 04/21/2019 Ancillary Orders [facility] [address] [facility]nd Floor, [address] [place] [address] Sampson Tatum MBBS [address] [facility] [address] [place] [address] [email or web address] Pulmonary arteriovenous malformation Social History Tobacco Use Types Packs/Day Years Used Date Smoking Tobacco: Never Comments Unknown Sex and Gender Information Value Date Recorded Sex Assigned at Not on file Legal Sex Female 11:22 AM EDT Gender Identity Not on file Sexual Orientation Not on file documented as of this encounter Plan of Treatment Not on file documented as of this encounter Results * FL Arteriovenous Malformation (AVM) Embolization/Sclerotherapy (04/21/2019 1:30 PM EDT) Anatomical Region Laterality Modality Radio Fluoroscop y 04/21/2019 4:11 PM EDT Impressions 04/22/2019 7:31 AM EDT Impression: Technically successful pulmonary arteriogram and coil embolization of lingular AVM and RML AVM. Disposition: Right leg straight for 4 hours Observation in RICU for 4 hours. May discharge to home after 5:30pm on 04/21/2019. ATTESTATION: I, Dr. Sampson Tatum as teaching physician, have reviewed the images for this case and if necessary edited the report originally created by Dr. Kali Mayers. 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 Contrast: 150 mL Visipaque Fluoroscopy time: minutes Estimated blood loss: <5 mL Complications: No immediate complications related to the procedure or sedation. Consent: Informed consent was obtained and documented prior to the procedure. Procedure Note: The patient was brought into the IR suite and positioned on the table in the supine position. The skin overlying the right groin was prepped with chlorhexidine and the skin was allowed time to dry completely, then draped in sterile fashion. An operative time out was performed and patient identification confirmed by patient name and medical record number on ID bracelet and by verbal verification of name by patient. Procedure site confirmation by physician. Hand hygiene completed. Ultrasound evaluation of the right common femoral vein was performed to plan access. An ultrasound image was saved for the medical record. The skin and subcutaneous soft tissues overlying the right common femoral vein were anesthetized with 1% lidocaine. Ultrasound guidance and a 21G needle and micropuncture set were used to access the right common femoral vein. A 6F 10cm vascular sheath was placed and flushed. An 0.035 glidewire was inserted into the right CFV, and advanced into the iliac vein subsequently advanced into the IVC. A pigtail catheter and angled glidecatheter were directed into the RVOT and advanced into the RUL pulmonary artery. Digital subtraction pulmonary arteriography was performed in multiple projections. Based on the findings, 3000 units of IV heparin was administered. The vascular sheath was removed and exchanged for a 7F Lumax guide catheter and inner 5F angled catheter. The Lumax and inner angled catheter were directed to the lingular AVM. Selective digital subtraction angiography was performed demonstrating the lingular A 5mm Amplatzer Plug was deployed, followed by two 6mm x 3cm Tornado coils. Post-embolization digital subtraction angiogram was performed. The Lumax catheter was redirected to the right main pulmonary artery and digital subtraction was performed. Based on the findings the Lumax guiding catheter and 5F angled catheter were directed to the RML AVM and repeat digital subtraction angiogram was performed. Based on the findings a 6mm Amplatzer plug was deployed. A 6mm x 3cm Tornado coil was deployed. A 15cm packing coil was deployed. A 30cm packing coil was deployed. Post-embolization digital subtraction of the right main pulmonary artery was performed. The catheter was redirected to the left main pulmonary artery and post embolization digital subtraction of the right main pulmonary artery. All catheters and wires were removed. Manual compression acheived hemostasis. 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 Contrast: 150 mL Visipaque Fluoroscopy time: minutes Estimated blood loss: <5 mL Complications: No immediate complications related to the procedure orsedation. Consent: Informed consent was obtained and documented prior to theprocedure. Procedure Note: The patient was brought into the IR suite and positioned on the table inthe supine position. The skin overlying the right groin was prepped with chlorhexidine and the skin was allowed time to dry completely, then drapedin sterile fashion. An operative time out was performed and patient identification confirmedby patient name and medical record number on ID bracelet and by verbalverification of name by patient. Procedure site confirmation by physician. Handhygiene completed. Ultrasound evaluation of the right common femoral vein was performed toplan access. An ultrasound image was saved for the medical record. The skin and subcutaneous soft tissues overlying the right common femoralvein were anesthetized with 1% lidocaine. Ultrasound guidance and a 21G needle and micropuncture set were used toaccess the right common femoral vein. A 6F 10cm vascular sheath was placed and flushed. An 0.035 glidewire was inserted into the right CFV, and advanced into theiliac vein subsequently advanced into the IVC. A pigtail catheter and angled glidecatheter were directed into the RVOT and advanced into the RULpulmonary artery. Digital subtraction pulmonary arteriography was performed in multiple projections. Based on the findings, 3000 units of IV heparin was administered. The vascular sheath was removed and exchanged for a 7F Lumax guidecatheter and inner 5F angled catheter. The Lumax and inner angled catheter weredirected to the lingular AVM. Selective digital subtraction angiography was performed demonstratingthe lingular A 5mm Amplatzer Plug was deployed, followed by two 6mm x 3cm Tornadocoils. Post-embolization digital subtraction angiogram was performed. The Lumax catheter was redirected to the right main pulmonary artery anddigital subtraction was performed. Based on the findings the Lumax guidingcatheter and 5F angled catheter were directed to the RML AVM and repeat digitalsubtraction angiogram was performed. Based on the findings a 6mm Amplatzer plug was deployed. A 6mm x 3cm Tornado coil was deployed. A 15cm packing coil was deployed. A 30cm packing coil was deployed. Post-embolization digital subtraction of the right main pulmonary arterywas performed. The catheter was redirected to the left main pulmonary artery and post embolization digital subtraction of the right main pulmonary artery. All catheters and wires were removed. Manual compression acheived hemostasis. IMPRESSION: Impression: Technically successful pulmonary arteriogram and coil embolization oflingular AVM and RML AVM. Disposition: Right leg straight for 4 hours Observation in RICU for 4 hours. May discharge to home after 5:30pm on04/21/2019. ATTESTATION: I, Dr. Sampson Tatum as teaching physician, have reviewed theimages for this case and if necessary edited the report originally created byDr. Kali Mayers. Sampson DUNCANBS [facility] IR VASCULAR Final Result documented in this encounter Visit Diagnoses Diagnosis Pulmonary arteriovenous malformation Pulmonary arteriovenous malformation documented in this encounter Care Teams Camera Supervisor Relationship Specialty Start Date End Date Rogelio Barrientos MD [address] [place] [address] PCP - General Internal Medicine 06/03/18 Amos Pinon MD [address] [place] [address] [place] [address] Pulmonary Disease 08/23/18 documented as of this encounter Additional Source Comments The information contained in this document represents components of the legal health record. It is not the complete legal health record.[facility]
--- OUTSIDE RECORDS SUMMARY | 2025-09-14 16:32 | XMS_ITS | Continuity of Care Document ---
Author Organization [facility] [address] [facility] [address] [place] [address] Phone [phone] Social History Type Date Description Comments Sex Female Sex Unknown Medical Devices Description No Information Available Encounters Description No Information Available Assessments Description No Information Available Plan of Treatment No Information Available Functional Status Description No Information Available Mental Status Description No Information Available Referrals Description No Information Available
--- OUTSIDE RECORDS SUMMARY | 2025-09-14 16:33 | XMS_ITS | Clinical Summary ---
Author Organization [facility] [address] [facility] Address [address] [place] [address] Phone Care Team Providers Care Unarmed Security Guard Name Role Phone Yasir Hanson MD Primary Care Provider + [phone] Allergies Active Allergy Reactions Criticality Noted Date [...] given Von Willebrand's disease coupled with low [id number] score. Assessment & Plan (02/25/2025 8:36 AM [...] nuclear stress test.. HHT (hereditary hemorrhagic telangiectasia) ([facility] /HCC V24) 08/09/2018 ROCIO (obstructive sleep apnea) [...] which only lists 2. I compared these [id number] and I can see the same outpouching [...] fluid. Gallbladder US 01/18/2018 Von Willebrand disease ([facility]/HCC V24, [facility]/HCC V28 ) 02/08/2018 Surgical History Surgery Date Site/Laterality Comments COLONOSCOPY 10/2017 PROCEDURE: HISTORICAL COLONOSCOPY; COMMENT: endoscopy as well. No report or exact date-not in HM Medical History Medical History Date Comments Cholelithiasis 02/08/2018 DX:Cholelithiasi s; COMMENT: And trace pericholecystic fluid. Gallbladder US 01/18/2018 Von Willebrand disease (CMS/ HCC V24, CMS/HCC V28) 02/08/2018 DX:Von Willebrand disease (H CC) [...] Description 09/21/2025 9:10 AM EST Office Visit [facility] [address] [place] [address] Cristiana Desouza NP [address] [place] [address] [place] [address] Health Maintenance Due Date Last Done Comments Breast Cancer Screening 1955 Colorectal Cancer Screening: Colonoscopy 1955 DTaP,Tdap,and Td Vaccines (1 - Tdap) 1975 Pneumococcal Vaccine: 50+ Years (1 of 1 - PCV) 2006 Zoster Vaccines (1 of 2) 2006 Cholesterol Screening (Lipid Panel) 09/23/2022 Falls Risk Assessment 09/23/2022 Hepatitis C [...] Procedure Name Priority Date/Time Associated Diagnosis Comments [facility] DEXA AXIAL SKELETON Routine 12/21/2023 10:56 AM EST Encounter for screening for osteoporosis from Last 3 Months or Most Recently Relevant to Health Maintenance Results * [facility] DEXA AXIAL SKELETON (12/21/2023 10:56 AM EST) Anatomical Region Laterality Modality Mammography 12/21/2023 9:32 AM EST Narrative 12/21/2023 10:56 AM [facility] Diagnostic Imaging Department [address] [place] [address] Patient: SUZY ALEX /Age/Sex: 1955 - 68 - F Unit#: [id number] Location/Status: [facility] CLI Mnemonic[facility] Ordering Physician: YASIR HANSON MD [facility] Dexa Axial Skeleton - 12/21/23954 Report Status:Signed History: Low estrogen state due to menopause. Parent hip fracture. Comparison: 09/27/21 Findings: Bone densitometry is performed utilizing dual energy x-ray absorptiometry (DXA) in the WiketsigSpectrawatt unit. The lumbar spine and proximal femora [...] 15.2 percent Hip 1.6 percent. IMPRESSION: Osteoporosis. [id number] Dictating Physician: CAROL QUINTANA MD Electronically Signed by: CAROL QUINTANA MD Dic Date/Time: 12/21/23 9180 Sign date/Time: 12/21/23 1056 Procedure Note Carol Quintana MD - 06/02/2024 [facility] Diagnostic Imaging Department [address] [place] [address] Patient: SUZY ALEX /Age/Sex: 1955 - 68 - F Unit#: [id number] Location/Status: [facility] CLI Mnemonic/Ordering Site: [facility] Ordering Physician: YASIR HANSON MD [facility] Dexa Axial Skeleton - 12/21/23954 Report Status:Signed History: Low estrogen state due to menopause. Parent hip fracture. Comparison: 09/27/21 Findings: Bone densitometry is performed utilizing dual energy x-ray absorptiometry(DXA) in the WiketsigSpectrawatt unit. The lumbar spine and proximal femora [...] 15.2 percent Hip 1.6 percent. IMPRESSION: Osteoporosis. 23157 Dictating Physician: CAROL QUINTANA MD Electronically Signed by: CAROL QUINTANA MD Dic Date/Time: 12/21/23 1055 Sign date/Time: 12/21/23 1056 Yasir Hanson MD IMG BI PROCEDURES Final Resu lt from Last 3 Months or Most Recently Relevant to Health Maintenance Insurance MEDICARE [facility] Care Teams Unarmed Security Guard Relationship Specialty Start Date End Date Yasir Hanson MD [address] [place] [address] PCP - General Internal Medicine 01/05/25
--- OUTSIDE RECORDS SUMMARY | 2025-09-14 16:33 | XMS_ITS | Encounter Summary ---
Author Organization [facility] Address [address] [place] [address] Phone Care Team Providers Care Account Services Representative Name Role Phone Rogelio Barrientos MD Primary Care Provider +[phone] Amos Pinon MD Unavailable +[phone] Encounter Details Date Type Department Care Team (Late st Contact Info) Description 08/20/2018 Procedure Pass [facility] Imaging [address] [place] [address] Social History Tobacco Use Types Packs/Day Years [...] on filedocumented in this encounter Care Teams Account Services Representative Relationship Specialty Start Date End Date Rogelio Barrientos MD [address] [place] [address] PCP - General Internal Medicine 06/03/18 Amos Pinon MD [address] [place] [address] [place] [address] Pulmonary Disease 08/23/18 documented as of this encounter Additional Source Comments The information contained in this document represents components of the legal health record. It is not the complete legal health record.[facility]
--- OUTSIDE RECORDS SUMMARY | 2025-09-14 16:33 | XMS_ITS | Clinical Summary ---
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) Social History Tobacco Use Types Packs/Day Years [...] on file Sexual Orientation Not on file Last Filed Vital Signs Vital Sign Reading Time Taken Comments Blood Pressure 120/60 07/09/2019 10:51 AM EDT Pulse 82 07/09/2019 10:51 AM EDT Temperature 37.2 C (99 F) 04/21/2019 8:03 AM EDT Respiratory Rate 15 04/21/2019 5:36 PM EDT Oxygen Saturation 97% 07/09/2019 10:51 AM EDT Inhaled Oxygen Concentration - - Weight 58.1 kg (128 lb) 07/09/2019 10:51 AM EDT Height 167.6 cm (5' 6 ) 07/09/2019 10:51 AM EDT Body Mass Index 20.66 07/09/2019 10:51 AM EDT Plan of Treatment Health Maintenance Due Date Last Done Comments Adult Td,Tdap Booster 1955 LIPID PANEL 1955 DEPRESSION SCREENING 1968 HEPATITIS C SCREENING 1974 SMOKING STATUS SCREENING (On ce After 26 Yrs) 1982 MAMMOGRAM 1996 COLOGUARD 2001 COLONOSCOPY 2001 COLORECTAL CANCER SCREENING 2001 FIT TEST 2001 FOBT 2001 SIGMOIDOSCOPY 2001 VIRTUAL COLONOSCOPY 2001 PNEUMOCOCCAL VACCINES (50+ years) (1 of 1 - PCV) 2006 ZOSTER VACCINES (1 of 2) 2006 OSTEOPOROSIS SCREENING INITI AL (ONE-TIME) 2021 INFLUENZA VACCINE (#1) 2025 7, 07/28/2016, 07/07/2014 COVID-19 VACCINE (2 - 2024-2 6 season) 2025 12/01/2020 RSV VACCINE (1 - 1-dose 75+ series) 2031 HEPATITIS A VACCINES Aged Out No long er eligible based on patient's age to complete this topic HIB VACCINES Aged Out No longer eligi ble based on patient's age to complete this topic MENINGOCOCCAL VACCINES (ACWY) Aged Out No longer eligible based on patient's age to complete this topic MENINGOCOCCAL VACCINES (B) Aged Out N o longer eligible based on patient's age to complete this topic Medical Devices Implanted Type Area Pipe Stem Aligner Device Identifier Shelf Expiration Date Model / Serial / Lot Plug 4 Amplatzer 5mm 10.5mm 125cm .038in Vascular Nitinol Mesh Flexible Self Expanding Occlusion Device Cable Embolization - [id number] Implanted:Qty: 1 on 04/21/2019 by Kali Mayers MD at [facility] Closure Device A G A MEDICAL [id number] / / Description:Lingula AVM left lung Lot# [id number] exp:04/13/2023 Plug 4 Amplatzer 6mm 11mm 125cm .038in Vascular Nitinol Mesh Flexible Self Expanding Occlusion Device Cable Embolization - [id number] Implanted:Qty: 1 on 04/21/2019 by Kali Mayers MD at [facility] Closure Device A G A MEDICAL [id number] / / Description:Right middle vidal g AVM Lot#[id number] exp:11/14/2023 Coil Tornado 6mm 3mm .035in Embolization Soft Stretch [place] - [id number] Implanted:Qty: 1 on 04/21/2019 by Kali Mayers MD at [facility] [employer] [id number] / / Description:Lingula AVM left lung Lot# [id number] exp: 12/31/2022 Coil Tornado 6mm 3mm .035in Embolization Soft Stretch [place] - [id number] Implanted:Qty: 1 on 04/21/2019 by Kali Mayers MD at [facility] [employer] [id number] / / Description:Lingula AVM left lung Lot# [id number] exp: 12/31/2022 Coil Tornado 6mm 3mm .035in Embolization Soft Stretch [place] - [id number] Implanted:Qty: 1 on 04/21/2019 by Kali Mayers MD at [facility] [employer] [id number] / / Description:Right middle vidal g AVM Lot# [id number] exp:03/11/2024 Coil Packing 15cm Leelee - [id number] Implanted:Qty: 1 on 04/21/2019 by Kali Mayers MD at [facility] Coil PENUMBRA 12/15/2026 [id number] / / [id number] Description:Right middle vidal g AVM Coil Packing 30cm Leelee - [id number] Implanted:Qty: 1 on 04/21/2019 by Kali Mayers MD at [facility] Coil PENUMBRA 12/14/2026 [id number] / [id number] Description:Right middle vidal g AVM Insurance [facility] [address] [place], [place] [address]O [facility] HMO O O O HMO HMO Advance Directives For more information, please contact: [phone] (9AM - 5PM [facility], Sunday-Sunday) * Full Code (Presumed) (Latest Code Status on File) Date Activated Date Inactivated Comments 04/21/2019 8:02 AM 04/22/2019 6:52 AM Care Teams Barge Hand Relationship Specialty Start Date End Date Rogelio Barrientos MD [address] [place] [address] PCP - General Internal Medicine 06/03/18 Amos Pinon MD [address] [place] [address] [place] [address] Pulmonary Disease 08/23/18 Additional Source Comments The information contained in this document represents components of the legal health record. It is not the complete legal health record.[facility]
--- OUTSIDE RECORDS SUMMARY | 2025-09-14 16:33 | XMS_ITS | Continuity of Care Document ---
Author Organization [place] [facility], [facility] Address [address] [place] [address] Care Team Providers Care Freight Rate Specialist Name Role Phone YASIR HANSON Primary Care Provider Assessment Encounter Date Assessment Date Assessment LastModified by Organization Details LastModified Time 08/26/2025 08/26/2025 70-year-old female presents for wax [...] Details Appointments Establish ed 15 2025 10:45A M KIMMY SCHREIBER Not available Not available Not available Lab None recorded. Referral None recorded. Procedures None recorded. Surgeries None recorded. Imaging None recorded. Medication Orders None recorded. Patient TargetsNo targets recorded. Patient InstructionsNo instructions recorded. Reason for Referral None Reported. Problems Name Problem SNOMED Code Status Onset Date Resolution Date Notes Provider Name and Address Organization Details Recorded Time Impacted cerumen of bilateral ears 57433169432 98366 Active 2021 Impacted cerumen, bilateral ; Note: Date Diagnosed : 05/03/2022 2:35 PM (H61.23) Not Available [facility] 4 02:23:46 Tinnitus of vascular origin 999244391 Active 2021 Pulsatile tinnitus, left ear; Note: Date Diagnosed : 05/03/2022 2:35 PM (H93.A2) Not Available [facility] 4 02:24:05 Impacted cerumen in right ear 68113156082 95321 Active 2022 Impacted cerumen, right ear; Note: Date Diagnosed : 01/17/2023 3:33 PM (H61.21) Not Available [facility] 4 02:23:41 Sensorine ural hearing loss of bilateral ears 888451378 Active 2022 Sensorine ural hearing loss, bilateral ; Note: Date Diagnosed : 02/16/2023 1:59 PM (H90.3) Not Available [facility] 4 02:24:07 Bilateral tinnitus 59915587526 02 Active 2022 Tinnitus, bilateral ; Note: Date Diagnosed : 02/16/2023 2:17 PM (H93.13) Not Available [facility] 4 02:24:04 Dizziness and giddiness 508472508 Active 2022 Dizziness and giddiness ; Note: Date Diagnosed : 02/16/2023 2:17 PM (R42) Not Available [facility] 4 02:23:39 Problem Notes None recorded. Procedures Surgical History Date Name Laterality Status Provider Name and Address Organization Details Recorded Time 5 Cerumen removal without microscope bilat completed KIMMY SCHREIBER [address] [place] [address],[address], [address], [facility] - [facility] [place] 08/26/2025 13:03:43 5 Air & Speech Audio with Tymps - 21239, 35511 & 57772 completed Pam Flores [place] - [facility] 01/14/2025 11:45:32 5 Cerumen removal without microscope bilat completed MARGOTH WAY PA-C [address] [place] [address],[address], [address], [place] - [facility] 01/14/2025 11:24:26 Imaging Results None recorded. Procedure [...] mg) tablet 01/14 completed Medicati on ID: [id number] B rand Name: digoxin Send Method: E-Prescr ibed Sub s Allowed: subs OK Medic ationGen ericName : digoxin Not Available Not Available Not Available flecainid e 100 mg tablet TAKE 1 TABLET BY MOUTH TWICE A DAY active Not Available Not Available No t Available digoxin 125 mcg (0.125 mg) tablet 01/14 completed Medicati on ID: [id number] B rand Name: digoxin Send Method: E-Prescr ibed Sub s Allowed: subs OK Medic ationGen ericName : digoxin Not Available Not Available Not Available diltiazem 30 mg tablet TAKE 1 TABLET BY MOUTH TWICE DAILY DIRECTED active Not Available Not Available No t Available amoxicill in 875 mg-potass ium clavulana te 125 mg tablet 01/14 completed Medicati on ID: [id number] B rand Name: amoxicil kurtis-pot clavulan ate [...] mg tablet 01/14 completed Medicati on ID: [id number] B rand Name: metoprol ol tartrate Send Method: E-Prescr ibed Sub s Allowed: subs OK Speci al Instruct ion: TAKE 1/2 TABLET BY MOUTH TWICE A DAY Medi cationGe nericNam e: metoprol ol tartrate Not Available Not Available Not Available DILT-XR 120 mg capsule, extended release TAKE 1 CAPSULE BY MOUTH EVERY DAY 04/02 /2025 completed Not Available Not Available Not Available Linzess 145 mcg capsule TAKE 1 CAPSULE (145 MCG TOTAL) BY MOUTH DAILY BEFORE BREAKFAS T active Not Available Not Available No t Available Linzess 72 mcg capsule PLEASE SEE ATTACHED FOR DETAILED DIRECTIO NS 01/14 completed Not Available Not Available Not Available Flowflex COVID-19 Antigen Home Test kit active Medicati on ID: [id number] B rand Name: Flowflex COVID-19 Ag Home [...] Updated DateTime 08/26/2025 167.64 cm 22.1 kg/m2 69414.15 g 100/68 mm[Hg] Amy Luevano [place] - [facility] 08/26/2025 10:56:19 Social History None recorded. Functional Status None recorded. Mental Status None recorded. Family History Nothing Reported. Medical History No medical history recorded. Gynecological HistoryNo gynecological history recorded. Obstetrics History GPAL:G 0 P 0 0 0 0 Past Encounters Encounter ID Performer Location Encounter Start Date Encounter Closed Date Diagnosis/Indication Diagnosis SNOMED-CT Code Diagnosis ICD10 Code Diagnosis IMO Codes Diagnosis Note [id number] KIMMY SCHREIBER [facility] of [address] [address] 08/26/2025 10:45:28 08/26/2025 11:13:33 Impacted cerumen of bilateral ears 3892170499 411169 H61.23 Tinnitus o f vascular origin 764645718 H93.A2 Bilateral tinnitus 79164 36147 102 H93.13 Sensorineu ral hearing loss of bilateral ears 009100707 H90.3 Health Concerns Section Related Observation LastModified by Organization Detai ls LastModified Time None Recorded Concern Status LastModified by Organization Details LastModified Time None Recorded Payers Encounter Date Sequence Insurance Name Policy Number Policy Lay Covered Member ID Lay Member ID Guarantor Name 08/26/2025 1 [place]: [employer] Suzy Alex [id number] Suzy Alex 08/26/2025 2 [facility] Suzy Alex [id number] Suzy Alex Notes Date Note Type Note Provider Name and Address Organization Details Recorded Time 08/26/2025 text/html ROS as noted in the HPI 70-year-old female presents for wax removal. Patient feels her hearing is stable, but continues to endorse bilateral tinnitus and an intermittent pulsating sound in her head, triggered by exertion. Denies otalgia, otorrhea, and dizziness. Using mineral oil for maintenance. History of AVM and HHT. PERICO HERNANDEZ MD [address] [place] [address], [address], [facility] - [facility] 08/26/2025 14:09:43 OBGyn Episode No OBEpisode recorded.
--- OUTSIDE RECORDS SUMMARY | 2025-09-14 16:33 | XMS_ITS | Encounter Summary ---
Author Organization [facility] Address [address] [place] [address] Phone Care Team Providers Care Geological E Logger Name Role Phone Rogelio Barrientos MD Primary Care Provider [phone] Amos Pinon MD Unavailable Encounter Details Date Type Department Care Team (Late st Contact Info) Description 08/20/2018 Procedure Pass [facility] [address] [place] [address] Social History Tobacco Use Types Packs/Day Years [...] on filedocumented in this encounter Care Teams Geological E Logger Relationship Specialty Start Date End Date Rogelio Barrientos MD [address] [place] [address] PCP - General Internal Medicine 06/03/18 Amos Pinon MD [address] [place] [address] [place] [address] Pulmonary Disease 08/23/18 documented as of this encounter Additional Source Comments The information contained in this document represents components of the legal health record. It is not the complete legal health record.[facility]
--- OUTSIDE RECORDS SUMMARY | 2025-09-14 16:33 | XMS_ITS | Encounter Summary ---
Author Organization [facility] Address [address] [place] [address] Phone Care Team Providers Care Hooker Up Name Role Phone Rogelio Barrientos MD Primary Care Provider + [phone] Amos Pinon MD Unavailable + [phone] Encounter Details Date Type Department Care Team (Late st Contact Info) Description 11/11/2018 Documentation [facility] [address] [facility], [address]nd Floor, [address] [place] [address] Sampson Tatum, MBBS [address] [facility] [address] [place] [address] [email or web address] Social History Tobacco Use Types Packs/Day Years [...] on filedocumented in this encounter Care Teams Hooker Up Relationship Specialty Start Date End Date Rogelio Barrientos MD [address] [place] [address] PCP - General Internal Medicine 06/03/18 Amos Pinon MD [address] [place] [address] [place] [address] Pulmonary Disease 08/23/18 documented as of this encounter Additional Source Comments The information contained in this document represents components of the legal health record. It is not the complete legal health record.[facility]
--- OUTSIDE RECORDS SUMMARY | 2025-09-14 16:33 | XMS_ITS | Encounter Summary ---
Author Organization [facility] Address [address] [place] [address] Phone Care Team Providers Care Facilities Management Executive Name Role Phone Rogelio Barrientos MD Primary Care Provider + [phone] Amos Pinon MD Unavailable + [phone] Encounter Details Date Type Department Care Team (Latest Contact Info) Description 11/12/2018 Ancillary Orders [facility] [address] [facility]nd Floor, [address] [place] [address] Sampson Tatum, MBBS [address] [facility] [address] [place] [address] [email or web address] Pulmonary arteriovenous malformation Social History Tobacco Use [...] documented as of this encounter Visit Diagnoses Diagnosis Pulmonary arteriovenous malformation documented in this encounter Care Teams Facilities Management Executive Relationship Specialty Start Date End Date Rogelio Barrientos MD [address] [place] [address] PCP - General Internal Medicine 06/03/18 Amos Pinon MD [address] [place] [address] [place] [address] Pulmonary Disease 08/23/18 documented as of this encounter Additional Source Comments The information contained in this document represents components of the legal health record. It is not the complete legal health record.[facility]
--- OUTSIDE RECORDS SUMMARY | 2025-09-14 16:33 | XMS_ITS | Encounter Summary ---
Author Organization [facility] Address [address] [place] [address] Phone Care Team Providers Care Leather Belt Loop Cutter Name Role Phone Rogelio Barrientos MD Primary Care Provider [phone] Amos Pinon MD Unavailable [phone] Encounter Details Date Type Department Care Team (Late st Contact Info) Description 08/20/2018 Procedure Pass [facility] [address] [place] [address] Social History Tobacco Use Types Packs/Day Years [...] on filedocumented in this encounter Care Teams Leather Belt Loop Cutter Relationship Specialty Start Date End Date Rogelio Barrienots MD [address] [place] [address] PCP - General Internal Medicine 06/03/18 Amos Pinon MD [address] [place] [address] [place] [address] Pulmonary Disease 08/23/18 documented as of this encounter Additional Source Comments The information contained in this document represents components of the legal health record. It is not the complete legal health record.[facility]
--- OUTSIDE RECORDS SUMMARY | 2025-09-14 16:33 | XMS_ITS | Encounter Summary ---
Author Organization [facility] Address [address] [place] [address] Phone Care Team Providers Care Soap Maker Name Role Phone Rogelio Barrientos MD Primary Care Provider [phone] Amos Pinon MD Unavailable [phone] Encounter Details Date Type Department Care Team (Late st Contact Info) Description 08/20/2018 Procedure Pass [facility] [address] [place] [address] Social History Tobacco Use Types Packs/Day Years [...] on filedocumented in this encounter Care Teams Soap Maker Relationship Specialty Start Date End Date Rogelio Barrientos MD [address] [place] [address] PCP - General Internal Medicine 06/03/18 Amos Pinon MD [address] [place] [address] [place] [address] Pulmonary Disease 08/23/18 documented as of this encounter Additional Source Comments The information contained in this document represents components of the legal health record. It is not the complete legal health record.[facility]
== END 2025-09-14 12:56 | disposition home or self-care (01) ==
LOC: HO.CT 12:55
PROVIDERS: PCP Internal Medicine; Visit Provider Hospitalist
DX: Q25.72 Congenital pulmonary arteriovenous malformation (principal); I48.91 Unspecified atrial fibrillation; G47.33 Obstructive sleep apnea (adult) (pediatric)
CPT/HCPCS: 71250

== ENCOUNTER → 2025-09-14 12:59 | Outpatient (BNV) | payer MEDICARE, OTHER, SELFPAY | PROVIDERS: PCP Internal Medicine; Visit Provider Radiology Diagnostic Radiology | DX: Q25.72 Congenital pulmonary arteriovenous malformation (principal) | CPT/HCPCS: 71250 ==